=== PATIENT | female | born 1995 | race Caucasian/White ===

== ENCOUNTER 2016-08-31 17:45 | Emergency (ER) | payer BC ==
[~2016-08-31] VITALS: Ht 165.1 cm; Wt 115.0 kg
[2016-08-31 17:50] VITALS: BP 147/88; PULSE 90; TEMP 37.1; O2SAT 97; Ht 165.1 cm; Wt 115.0 kg
[2016-08-31] MEDS ORDERED: XYLOCAINE 1%/SOD BICARB 20 ML VIAL INFIL ONE (18:15)
--- NOTE | 2016-08-31 18:36 | DIAGNOSTIC IMAGING REPORT ---
LEFT ANKLE 3 VIEWS CLINICAL HISTORY: Left ankle injury. FINDINGS: 3 views of left ankle are obtained. No prior studies are available for comparison at the time of dictation. The skeletal structures are well mineralized. There is a comminuted and minimally distracted spiral fracture through the distal fibular shaft with overlying soft tissue edema. This is only seen on the lateral view. No tibial fracture is seen. The ankle mortise is intact. No joint effusion is identified. A large plantar calcaneal enthesophyte is observed. IMPRESSION: Comminuted and minimally distracted spiral fracture through the distal fibular shaft as above. Electronically signed by: Mack Rivera M.D. 08/31/2016 6:34 PM Dictated Date/Time: 08/31/2016 6:33 PM
--- NOTE | 2016-08-31 19:13 | EMERGENCY ROOM VISIT NOTE ---
History First contact with patient: 17:54 Chief Complaint: ANKLE PAIN Stated Complaint: L ANKLE PAIN WHEN PUTTING WEIGHT ON IT History of Present Illness The patient is a 20 year old female who presents to the Emergency Room with complaints of left ankle pain after twisting her ankle walking down an embankment. The patient reports diffuse swelling and pain, rating her discomfort a 6 out of 10. The pain is worsened with weightbearing. She denies any pain extending into the calf or knee region. She denies any paresthesias or numbness of the left foot or toes. She denies any prior history of left ankle injuries. Review of Systems 10 system review was performed and was negative except for pertinent positives and negatives as indicated in history of present illness Past Medical/Surgical History Medical Problems: (1) No significant past medical history Surgical Problems: (1) No history of previous surgery Family History FH: cancer FH: heart disease FH: hypertension FH: lung disease Social History Smoking Status: Never Smoker Alcohol Use: none Marital Status: single Housing Status: lives with family Occupation Status: employed Current/Historical Medications No Active Prescriptions or Reported Meds Allergies Coded Allergies: No Known Allergies (Unverified , 08/31/16) Physical Exam Vital Signs Date Time Temp Pulse Resp B/P (MAP) Pulse Ox O2 Delivery O2 Flow Rate FiO2 08/31/16 17:50 37.1 90 18 147/88 97 Room Air Physical Exam CONSTITUTIONAL: Morbidly obese female, alert and oriented X 3 with positive affect. Patient does not appear in any acute distress. HEENT: Normocephalic, atraumatic. Pupils equal, round and reactive. NECK: Full active range of motion without discomfort. MUSCULOSKELETAL: Examination of the left ankle shows diffuse edema and mild ecchymosis. No open wounds or hematomas noted. The patient has no focal tenderness to palpation over the medial or lateral ligaments, malleoli, dorsal midfoot, metatarsals, phalanges, calcaneus or Achilles tendon. She is tender over the distal fibula region. No tenderness over the proximal fibula. Pedal pulses are intact. INTEGUMENTARY: No rash or other significant dermatologic conditions noted. NEUROLOGIC: No focal neurologic deficits noted. Left foot and toes are sensory intact. Medical Decision & Procedures ER Provider Diagnostic Interpretation: My interpretation of left ankle x-rays does not show any acute ankle mortise asymmetry. She does have a comminuted and minimally distracted spiral fracture of the distal fibula. Radiologist report is as follows: LEFT ANKLE 3 VIEWS CLINICAL HISTORY: Left ankle injury. FINDINGS: 3 views of left ankle are obtained. No prior studies are available for comparison at the time of dictation. The skeletal structures are well mineralized. There is a comminuted and minimally distracted spiral fracture through the distal fibular shaft with overlying soft tissue edema. This is only seen on the lateral view. No tibial fracture is seen. The ankle mortise is intact. No joint effusion is identified. A large plantar calcaneal enthesophyte is observed. IMPRESSION: Comminuted and minimally distracted spiral fracture through the distal fibular shaft as above. ED Course Patient history and physical exam were performed. Nurse's notes were reviewed. Vital signs were reviewed. The patient refused any analgesics. X-rays of the left ankle confirms a comminuted and spiral fracture of the distal fibula. A posterior Ortho-Glass splint and crutches were applied. The patient was instructed to limit weightbearing. Ice and elevation for swelling. Ibuprofen and Tylenol in alternating fashion as needed for pain. The patient was provided a copy of her x-rays on disc to take back to [place] where she will need close follow-up with her orthopedic surgeon upon return home as suspect this will require surgical intervention. The patient and mother were happy with plan of care, and the patient rated her discomfort a 3 out of 10 at the time of discharge. Medical Decision Impression Primary Impression: Closed fracture of left distal fibula Departure Information Prescriptions No Active Prescriptions or Reported Meds Referrals No Doctor, Assigned (PCP) Patient Instructions [facility] Problem Qualifiers Primary Impression: Closed fracture of left distal fibula Encounter type: initial encounter Fracture morphology: torus Qualified Codes: S82.822A - Torus fracture of lower end of left fibula, initial encounter for closed fracture
== END 2016-08-31 19:30 | disposition home or self-care (01) ==
LOC: C.EDB 17:47 → C.EDD 19:30
DX: S82.442A Displaced spiral fracture of shaft of left fibula, initial encounter for closed fracture (principal); X58.XXXA Exposure to other specified factors, initial encounter; Z80.9 Family history of malignant neoplasm, unspecified; Z82.49 Family history of ischemic heart disease and other diseases of the circulatory system